=== PATIENT | male | born 1945 | race Hispanic/Latino ===

== ENCOUNTER 2019-01-11 14:21 | Observation (INO) | payer MEDICARE ==
[~2019-01-11] VITALS: Ht 185.4 cm; Wt 110.7 kg
[2019-01-11] MEDS ORDERED: PANTOPRAZOLE 40 MG 10ML VIAL IV ONE (14:39)
[2019-01-11] MEDS ORDERED: NITROGLYCERIN 2% OINT 1 GM PKT TOP ONE (14:45)
[2019-01-11] MEDS ORDERED: ASPIRIN 81 MG CHEW TAB PO ONE (14:45)
[2019-01-11 15:08] LABS: BASOPHILS % 0.3 % (0.0-1.0); EOSINOPHILS % 0.4 % (0.0-6.0); HEMATOCRIT 45.1 % (38.2-49.6); HEMOGLOBIN 14.7 g/dL (14.0-18.0); LYMPHOCYTES # (AUTO) 1.6 (1.0-3.2); LYMPHOCYTES % 20.5 % (18.0-39.1); MEAN CORPUSCULAR HEMOGLOBIN 26.9 pg (28-32); MEAN CORPUSCULAR HGB CONC 32.6 g/dL (31-35); MEAN CORPUSCULAR VOLUME 82.4 fL (81-99); MONOCYTES # (AUTO) 0.7 (0.2-0.8); MONOCYTES % 8.6 % (4.4-11.3); NEUTROPHILS # (AUTO) 5.5 (2.1-6.9); NEUTROPHILS % 69.9 % (38.7-80.0); PLATELET COUNT 221 x10e3/uL (140-360); RED BLOOD COUNT 5.47 x10e6/uL (4.3-5.7); RED CELL DISTRIBUTION WIDTH 14.9 % (11.7-14.4)
[2019-01-11 15:13] LABS: INR 0.92; PARTIAL THROMBOPLASTIN TIME 26.7 seconds (23.8-35.5); PROTHROMBIN TIME 12.8 seconds (11.9-14.5)
[2019-01-11 15:14] LABS: CLARITY,URINE CLEAR (CLEAR); COLOR,URINE YELLOW (YELLOW); KETONES,URINE NEGATIVE (NEGATIVE); LEUKOCYTE ESTERASE ,URINE NEGATIVE (NEGATIVE); NITRITE,URINE NEGATIVE (NEGATIVE); PROTEIN,URINE DIPSTICK NEGATIVE (NEGATIVE)
[2019-01-11 15:15] LABS: BILIRUBIN,URINE NEGATIVE (NEGATIVE); URINE UROBILINOGEN 0.2 mg/dL (0.2 - 1)
[2019-01-11 15:20] LABS: BACTERIA,URINE FEW /HPF; RBC,URINE 0-5 /HPF (0-5)
[2019-01-11 15:21] LABS: ALBUMIN 3.8 g/dL (3.5-5.0); ANION GAP 10.7 mmol/L (8-16); CALCIUM 9.5 mg/dL (8.4-10.2); CREATININE, SERUM 1.22 mg/dL (0.72-1.25); MAGNESIUM 2.4 MG/DL (1.3-2.1); POTASSIUM 3.7 mmol/L (3.5-5.1)
[2019-01-11 15:40] LABS: CREATINE KINASE MB 1.4 ng/mL (0-5.0); THYROID STIMULATING HORMONE 1.448 uIU/mL (0.350-4.940)
--- NOTE | 2019-01-11 16:02 | Diagnostic Imaging Report ---
EXAMINATION: CHEST SINGLE (PORTABLE) INDICATION: Chest pain ^CP COMPARISON: None FINDINGS: TUBES and LINES: None. LUNGS: Lungs are well inflated. Lungs are clear. There is no evidence of pneumonia or pulmonary edema. PLEURA: No pleural effusion or pneumothorax. HEART AND MEDIASTINUM: Tortuous thoracic aorta BONES AND SOFT TISSUES: No acute osseous lesion. Soft tissues are unremarkable. UPPER ABDOMEN: No free air under the diaphragm. IMPRESSION: Tortuous thoracic aorta Signed by: Dr. Tavon Chandler M.D. on 01/11/2019 3:58 PM
[2019-01-11] MEDS ORDERED: SODIUM CHLORIDE 0.9% 1000ML 1,000 ML IV STA (16:24)
[2019-01-11] MEDS ORDERED: MORPHINE SULFATE INJ 4 MG/ML INJ 1ML IV ONE (16:45)
[2019-01-11] MEDS ORDERED: ONDANSETRON HCL INJ 2MG/ML 2ML 2 MG/ML VIAL IV ONE (16:45)
[2019-01-11] MEDS ORDERED: SODIUM CHLORIDE 0.9% 1000ML 1,000 ML ONE (16:46)
[2019-01-11] MEDS ORDERED: MORPHINE SULFATE 2 MG/ML SYR 1ML IV PRN (17:00)
[2019-01-11] MEDS ORDERED: ONDANSETRON HCL INJ 2MG/ML 2ML 2 MG/ML VIAL IV PRN (17:00)
[2019-01-11] MEDS ORDERED: MORPHINE SULFATE INJ 4 MG/ML INJ 1ML IV PRN (17:15)
--- NOTE | 2019-01-11 17:20 | Diagnostic Imaging Report ---
EXAM: CT Chest WITH contrast (PE Protocol) INDICATION: Chest pain. COMPARISON: Chest radiograph 01/11/2019 TECHNIQUE: Chest was scanned utilizing a multidetector helical scanner from the lung apex through the level of the diaphragm after administration of IV contrast. Thin section reconstructions were obtained with special concentration on the pulmonary arteries. Coronal and sagittal reformations were obtained. Pulmonary embolism protocol was performed. IV CONTRAST: 100 mL of Isovue-370 COMPLICATIONS: None RADIATION DOSE: Total DLP: 560.08 mGy*cm Estimated effective dose: (DLP x 0.014 x size factor) mSv CTDIvol has been reviewed. It is below the limits set by the Radiation Protocol Committee (RPC). Dose modulation, iterative reconstruction, and/or weight based adjustment of the mA/kV was utilized to reduce the radiation dose to as low as reasonably achievable. FINDINGS: LINES/ TUBES: None. LUNGS AND AIRWAYS: No filling defect is identified within the pulmonary arteries to the segmental level. The lungs are unremarkable. Airways are normal. PLEURA: The pleural spaces are clear. HEART AND MEDIASTINUM: The thyroid gland is normal. No mediastinal, hilar or axillary lymphadenopathy. The heart is normal in size. There is no pericardial effusion. . Main pulmonary artery measures 2.9 cm in diameter and the ascending aorta measures 3.5 cm. UPPER ABDOMEN: Unremarkable BONES: The visualized bony thorax is within normal limits. SOFT TISSUES: Unremarkable. IMPRESSION: No pulmonary emboli. No acute cardiopulmonary abnormality. Signed by: Dr. Tavon Chandler M.D. on 01/11/2019 5:17 PM
--- OUTSIDE RECORDS SUMMARY | 2019-01-11 17:30 | XMS REPORT ---
Author Author [facility] Address Unknown Phone Unavailable Care Team Providers Care Chip Person Name Role Phone Michela STOCKTON Unavailable Unavailable Problems This patient has no known problems. Allergies, Adverse Reactions, Alerts This patient has no known allergies or adverse reactions. Medications This patient has no known medications. Results Test Description Test Time Test Comments Text Results Atomic Results Result Comments CT CHEST W 2019-01-11 17:14:00 [facility] [address] [place] [id number] Patient Name: NATASHA GILLIAM MR #: [id number] : 1945 Age/Sex: 73/M Req #: [id number] Adm Physician: Ordered by: BENIGNO STOCKTON MD Report #: [id number] Location: ER Room/Bed: Procedure: [id number] CT/CT CHEST W Exam Date: Exam Time: REPORT STATUS: Signed EXAM: CT Chest WITH contrast (PE Protocol) INDICATION: Chest pain. COMPARISON: Chest radiograph 01/11/2019 TECHNIQUE: Chest was scanned utilizing a multidetector helical scanner from the lung apex through the level of the diaphragm after administration of IV contrast. Thin section reconstructions were obtained with special concentration on the pulmonary arteries. Coronal and sagittal reformations were obtained. Pulmonary embolism protocol was performed. IV CONTRAST: 100 mL of Isovue-370 COMPLICATIONS: None RADIATION DOSE: Total DLP: 560.08 mGy*cm Estimated effective dose: (DLP x 0.014 x size factor) mSv CTDIvol has been reviewed. It is below the limits set by the Radiation Protocol Committee (RPC). Dose modulation, iterative reconstruction, and/or weight based adjustment of the mA/kV was utilized to reduce the radiation dose to as low as reasonably achievable. FINDINGS: LINES/ TUBES: None. LUNGS AND AIRWAYS: No filling defect is identified within the pulmonary arteries to the segmental level. The lungs are unremarkable. Airways are normal. PLEURA: The pleural spaces are clear. HEART AND MEDIASTINUM: The thyroid gland is normal. No mediastinal, hilar or axillary lymphadenopathy. The heart is normal in size. There is no pericardial effusion. . Main pulmonary artery measures 2.9 cm in diameter and the ascending aorta measures 3.5 cm. UPPER ABDOMEN: Unremarkable BONES: The visualized bony thorax is within normal limits. SOFT TISSUES: Unremarkable. IMPRESSION: No pulmonary emboli. No acute cardiopulmonary abnormality. Signed by: Dr. Tavon Chandler M.D. on 01/11/2019 5:17 PM Dictated By: TAVON CHANDLER MD, MD 16 Transcribed By: ABIMBOLA on 01/11/191716 COPY TO: BENIGNO STOCKTON MD CHEST SINGLE (PORTABLE) 2019-01-11 15:58:00 [place] [address] Patient Name: NATASHA GILLIAM MR #: [id number] : 1945 Age/Sex: 73/M Req #: [id number] Adm Physician: Ordered by: BENIGNO STOCKTON MD Report #: [id number] Location: ER Room/Bed: Procedure: [id number] DX/CHEST SINGLE (PORTABLE) Exam Date: Exam Time: REPORT STATUS: Signed EXAMINATION: CHEST SINGLE (PORTABLE) INDICATION: Chest pain CP COMPARISON: None FINDINGS: TUBES and LINES: None. LUNGS: Lungs are well inflated. Lungs are clear. There is no evidence of pneumonia or pulmonary edema. PLEURA: No pleural effusion or pneumothorax. HEART AND MEDIASTINUM: Tortuous thoracic aorta BONES AND SOFT TISSUES: No acute osseous lesion. Soft tissues are unremarkable. UPPER ABDOMEN: No free air under the diaphragm. IMPRESSION: Tortuous thoracic aorta Signed by: Dr. Tavon Chandler M.D. on 01/11/2019 3:58 PM Dictated By: TAVON CHANDLER MD, MD [id number] Transcribed By: ABIMBOLA on 01/11/19 7762 COPY TO: BENIGNO STOCKTON MD
[2019-01-11] MEDS: NITROGLYCERIN 2% OINT 1 GM PKT TOP SCH (18:00)
[2019-01-11 18:35] VITALS: BP 187/98
--- NOTE | 2019-01-11 19:10 | NUR ---
RECEIVED REPORT ON PATIENT, RECEIVED PATIENT AAOX3 RESTING IN BED WITH FAMILY AT SIDE. REPORTS CHEST PAIN 3/10, AND RELIEF OF SOB. INITIAL ASSESSMENT, ADMISSION HX COMPLETE. BED LOCKED AND IN LOWEST POSITION, CALL LIGHT WITHIN EASY REACH. WILL CONTINUE TO MONITOR THE PATIENT CLOSELY.
[2019-01-11 20:00] VITALS: BP 160/95
[2019-01-11] MEDS ORDERED: NEXIUM20 MG PO (20:16)
[2019-01-11] MEDS ORDERED: ASPIR 8181 MG PO (20:16)
[2019-01-11] MEDS ORDERED: LISINOPRIL10 MG PO (20:16)
[2019-01-11 20:25] VITALS: BP 160/95
[2019-01-11] MEDS: FAMOTIDINE 20 MG/2 ML VIAL IV SCH (21:12)
[2019-01-11] MEDS: METOPROLOL TARTRATE 25 MG TAB PO SCH (21:12)
[2019-01-11] MEDS ORDERED: SODIUM CHLORIDE 0.9% 50ML 50 ML ONE (22:45)
[2019-01-11] MEDS ORDERED: IOPAMIDOL 370 MG/ML 200 ML INFUS..BTL INJ ONE (22:45)
[2019-01-12 00:14] LABS: CREATINE KINASE MB 1.5 ng/mL (0-5.0)
[2019-01-12 00:16] VITALS: BP 152/103
[2019-01-12] MEDS: NITROGLYCERIN 2% OINT 1 GM PKT TOP SCH ×3 (00:16→12:00)
[2019-01-12] MEDS ORDERED: PANTOPRAZOLE SOD 40 MG TABEC PO PRN ×2 (04:30→15:45)
[2019-01-12] MEDS: METOPROLOL TARTRATE 25 MG TAB PO SCH (05:00)
[2019-01-12 05:05] VITALS: BP 121/78
[2019-01-12] MEDS ORDERED: ACETAMINOPHEN 325 MG TAB PO PRN (05:30)
[2019-01-12 05:37] LABS: BASOPHILS % 0.3 % (0.0-1.0); EOSINOPHILS # (AUTO) 0.1 (0.0-0.4); EOSINOPHILS % 1.5 % (0.0-6.0); HEMATOCRIT 42.3 % (38.2-49.6); HEMOGLOBIN 13.4 g/dL (14.0-18.0); LYMPHOCYTES % 26.9 % (18.0-39.1); MEAN CORPUSCULAR HEMOGLOBIN 26.3 pg (28-32); MEAN CORPUSCULAR HGB CONC 31.7 g/dL (31-35); MEAN CORPUSCULAR VOLUME 82.9 fL (81-99); MONOCYTES # (AUTO) 0.7 (0.2-0.8); MONOCYTES % 9.5 % (4.4-11.3); NEUTROPHILS # (AUTO) 4.5 (2.1-6.9); NEUTROPHILS % 61.5 % (38.7-80.0); PLATELET COUNT 186 x10e3/uL (140-360); RED CELL DISTRIBUTION WIDTH 14.9 % (11.7-14.4)
[2019-01-12] MEDS: FAMOTIDINE 20 MG/2 ML VIAL IV SCH ×2 (05:41→17:35)
--- NOTE | 2019-01-12 05:43 | NUR ---
DR SYKES ROUNDED ON PATIENT. NEW ORDERS RECEIVED AND IMPLEMENTED. PATIENT DENIES CHEST PAIN. PLAN FOR DR. HANSEN TO SEE PATIENT, AND ECHO TO BE PERFORMED.
[2019-01-12 06:05] LABS: ALANINE AMINOTRANSFERASE 18 IU/L (0-55); ALBUMIN 3.3 g/dL (3.5-5.0); ALKALINE PHOSPHATASE 53 IU/L (40-150); ANION GAP 10.1 mmol/L (8-16); BLOOD UREA NITROGEN 15 mg/dL (7-26); BUN/CREATININE RATIO 15 (6-25); CARBON DIOXIDE 25 mmol/L (22-29); CHLORIDE 107 mmol/L (98-107); CHOL/HDL RATIO 5.1 (3.9-4.7); CHOLESTEROL 174 MD/DL (0-199); CREATININE, SERUM 1.02 mg/dL (0.72-1.25); EST GLOMERULAR FILTRATION RATE > 60 ML/MIN (60-); GLUCOSE 91 mg/dL (74-118); HDL CHOLESTEROL 34 MG/DL (40-60); LDL CHOLESTEROL 113 MG/DL (60-130); POTASSIUM 4.1 mmol/L (3.5-5.1); SODIUM 138 mmol/L (136-145); TRIGLYCERIDES 134 MG/DL (0-149)
[2019-01-12 06:37] LABS: CREATINE KINASE MB 1.5 ng/mL (0-5.0)
[2019-01-12 07:16] VITALS: BP 132/80
--- NOTE | 2019-01-12 07:32 | NUR ---
Received patient in report this morning. Patient is awake in bed. No S&S of distress noted.
[2019-01-12] MEDS ORDERED: ASPIRIN 81 MG ENTERIC COATED PO SCH (09:00)
[2019-01-12] MEDS ORDERED: LISINOPRIL 10 MG TAB PO SCH (09:00)
[2019-01-12 10:22] VITALS: BP 132/80
--- NOTE | 2019-01-12 10:26 | NUR ---
Patient is awake and supine in bed. at bedside. No chest pain reported. No headache. Patient states "I feel 100%". Lung sounds clear. Bowel sounds active. Skin intact. L AC IV asymptomatic, intact, and patent. No edema noted. No S&S of distress noted. Will continue to monitor. Bed locked in lowest position, call light in reach.
[2019-01-12 12:09] VITALS: BP 135/82
[2019-01-12 13:22] LABS: CREATINE KINASE MB 1.5 ng/mL (0-5.0)
[2019-01-12 16:41] VITALS: BP 126/81
--- NOTE | 2019-01-12 17:15 | NUR ---
Per Dr. Lujan patient can be discharged from cardiology stand point. Dr. Perry paged to notify.
--- NOTE | 2019-01-12 18:40 | NUR ---
L AC 20g IV removed. Catheter tip intact. Pressure dressing applied.
--- NOTE | 2019-01-12 18:49 | NUR ---
Patient discharged at this time. Ambulated with staff assistance to car. Steady gait noted. Discharge instructions given. Continue home meds. Follow up with PCP. Go to ER if chest pain occurs again. Given education about chest pain, noncardiac. Patient verbalized understanding.
--- NOTE | 2019-01-12 23:38 | Consultation ---
DATE OF CONSULTATION: Cardiology consultation. HISTORY OF PRESENT ILLNESS: This is a 73-year-old man with history of hypertension, gastroesophageal reflux disease, who presented to the emergency department with chest pain, shortness of breath, and palpitations. Symptoms started a few days prior to arrival, symptoms were mild in intensity. No exacerbating or relieving factors. No exertional chest pain or typical angina. Upon arrival here, he was noted to be hypertensive with blood pressure readings in the systolic 160s to 180s at home. Upon arrival here, he ruled out for acute OK with three sets of negative cardiac enzymes and a 12-lead electrocardiogram showing nonspecific ST-wave abnormalities. REVIEW OF SYSTEMS: A 12-point review of system was conducted, is negative otherwise as stated above in the HPI. PAST MEDICAL HISTORY: As stated above in the HPI. PAST SURGICAL HISTORY: None recent. PAST FAMILY HISTORY: No premature coronary artery disease and cardiac . SOCIAL HISTORY: No illicit drugs, alcohol use, or tobacco use. MEDICATIONS: See medication reconciliation form. ALLERGIES: IBUPROFEN. PHYSICAL EXAMINATION: VITAL SIGNS: Temperature is 98.6, heart rate 77, respirations are 18, blood pressure is 128/98, ox saturation 98% on room air. GENERALLY: Well appearing, well built, no apparent distress. Alert and oriented x3. HEENT: Head is normocephalic, atraumatic. Eyes, the extraocular muscles are intact. Conjunctivae are clear. NECK: No JVD. No bruits. CARDIOVASCULAR: Regular rate and rhythm. LUNGS: Clear to auscultation bilaterally. No wheezing or rales. ABDOMEN: Soft, nontender, nondistended. EXTREMITIES: No clubbing, cyanosis, or edema. VASCULAR: 2+ pulses. SKIN: Warm, dry, and intact. NEUROLOGIC: No focal deficits noted. LABORATORY DATA: Reviewed. Troponins negative x3. A 12-lead electrocardiogram showed normal sinus rhythm. Nonspecific ST-T wave abnormalities. CT of the chest showed no acute cardiopulmonary abnormality. 2D echocardiogram showed normal left ventricular systolic function. IMPRESSION: 1. Precordial pain. 2. Hypertension. 3. Gastroesophageal reflux disease. RECOMMENDATIONS: The patient ruled out for acute myocardial infarction. Current workup is within normal limits. The patient may be discharged from a cardiovascular standpoint with outpatient stress testing. DO FROILAN Duke/VJL /[id number]
--- NOTE | 2019-01-14 05:43 | Discharge Summary ---
DISCHARGE DIAGNOSIS: Chest pain, ruled out myocardial infarction. HISTORY OF PRESENT ILLNESS AND HOSPITAL COURSE: See hospital chart for full details. The patient is a gentleman, who presents to the emergency room with atypical chest pain and resolved in the emergency room, it did not reoccur, who did rule out by cardiac enzymes and EKGs. He was seen by Dr. Lujan of Cardiology, who felt like the patient was stable for discharge, which the patient was happy with and follow up in 1-2 weeks with an outpatient stress test. CT scan of the chest showed no evidence of pulmonary embolus and echo was within normal limits. The patient was discharged home and told to continue with his medication and follow up with PCP in 1-2 weeks as well as Dr. Lujan in 1-2 weeks. Please see hospital chart for full details. MD NAILA Gomez/MANDY /[id number]
== END 2019-01-12 18:50 | disposition home or self-care (01) ==
LOC: ER 14:21 → ERHOLD 16:49 → IMCU 18:08
PROVIDERS: ADMIT Internal Medicine; ATTEND Internal Medicine
DX: R07.89 Other chest pain (principal); I10 Essential (primary) hypertension; K21.9 Gastro-esophageal reflux disease without esophagitis; R51 Headache
CPT/HCPCS: 36415 ×2; 71045; 71260; 80053 ×2; 80061; 81001; 82550 ×2; 82553 ×2; 83735; 83880; 84443; 84484 ×2; 85025 ×2; 85379; 85610; 85730; 87086; 93005; 93306; 99284; C9113; G0378 ×2; J2270; J7030; Q9967

== ENCOUNTER 2019-06-29 09:50 | Observation (INO) | payer MEDICARE ==
[~2019-06-29] VITALS: Ht 185.4 cm; Wt 112.5 kg
[~2019-06-29 09:50] MED LIST: ASPIR 8181 MG PO; LISINOPRIL10 MG PO; NEXIUM20 MG PO
[2019-06-29] MEDS ORDERED: PANTOPRAZOLE 40 MG 10ML VIAL IV STA (09:57)
[2019-06-29] MEDS ORDERED: ASPIRIN 81 MG CHEW TAB PO ONE (10:00)
[2019-06-29] MEDS ORDERED: ASPIRIN 81 MG ENTERIC COATED PO ONE (10:13)
[2019-06-29 10:22] LABS: BASOPHILS % 0.3 % (0.0-1.0); EOSINOPHILS # (AUTO) 0.1 (0.0-0.4); EOSINOPHILS % 0.8 % (0.0-6.0); HEMATOCRIT 45.5 % (38.2-49.6); HEMOGLOBIN 15.1 g/dL (14.0-18.0); LYMPHOCYTES # (AUTO) 1.7 (1.0-3.2); LYMPHOCYTES % 23.7 % (18.0-39.1); MEAN CORPUSCULAR HEMOGLOBIN 26.8 pg (28-32); MEAN CORPUSCULAR HGB CONC 33.2 g/dL (31-35); MEAN CORPUSCULAR VOLUME 80.7 fL (81-99); MONOCYTES # (AUTO) 0.6 (0.2-0.8); MONOCYTES % 8.4 % (4.4-11.3); NEUTROPHILS # (AUTO) 4.8 (2.1-6.9); NEUTROPHILS % 66.5 % (38.7-80.0); PLATELET COUNT 218 x10e3/uL (140-360); RED BLOOD COUNT 5.64 x10e6/uL (4.3-5.7); RED CELL DISTRIBUTION WIDTH 14.8 % (11.7-14.4)
[2019-06-29] MEDS ORDERED: NITROGLYCERIN 2% OINT 1 GM PKT TOP ONE (10:30)
[2019-06-29 10:38] LABS: INR 0.91; PARTIAL THROMBOPLASTIN TIME 27.4 seconds (23.8-35.5); PROTHROMBIN TIME 12.7 seconds (11.9-14.5)
[2019-06-29 10:47] LABS: ALANINE AMINOTRANSFERASE 25 IU/L (0-55); ALBUMIN/GLOBULIN RATIO 1.1 (0.8-2.0); ALKALINE PHOSPHATASE 64 IU/L (40-150); ANION GAP 11.8 mmol/L (8-16); BLOOD UREA NITROGEN 16 mg/dL (7-26); BUN/CREATININE RATIO 15 (6-25); CARBON DIOXIDE 25 mmol/L (22-29); CHLORIDE 104 mmol/L (98-107); CREATINE KINASE 73 IU/L (30-200); EST GLOMERULAR FILTRATION RATE > 60 ML/MIN (60-); GLUCOSE 97 mg/dL (74-118); MAGNESIUM 2.2 MG/DL (1.3-2.1); POTASSIUM 3.8 mmol/L (3.5-5.1); SODIUM 137 mmol/L (136-145)
[2019-06-29] MEDS ORDERED: ONDANSETRON HCL INJ 2MG/ML 2ML 2 MG/ML VIAL IV PRN (11:00)
[2019-06-29] MEDS ORDERED: MORPHINE SULFATE 2 MG/ML SYR 1ML IV PRN (11:00)
[2019-06-29] MEDS ORDERED: FAMOTIDINE 20 MG/2 ML VIAL IV SCH ×2 (11:00→12:00)
[2019-06-29 11:03] LABS: BILIRUBIN,URINE NEGATIVE (NEGATIVE); CLARITY,URINE HAZY (CLEAR); COLOR,URINE YELLOW (YELLOW); KETONES,URINE NEGATIVE (NEGATIVE); LEUKOCYTE ESTERASE ,URINE NEGATIVE (NEGATIVE); NITRITE,URINE NEGATIVE (NEGATIVE); PROTEIN,URINE DIPSTICK NEGATIVE (NEGATIVE); URINE UROBILINOGEN 0.2 mg/dL (0.2 - 1)
[2019-06-29 11:07] LABS: BACTERIA,URINE FEW /HPF; EPITHELIAL CELLS,URINE FEW /LPF; WBC,URINE (MAN) 0-5 /HPF (0-5)
--- NOTE | 2019-06-29 11:18 | NUR ---
DR. VANCE IN TO SEE THE PT. AND DISCUSS POSSIBLE PROCEDURE TODAY; TREADMILL STRESS TEST.
--- NOTE | 2019-06-29 11:43 | NUR ---
REPORT CALLED TO DORIS VALDES FOR THIS PT. TO GO TO RM 175; ROOM NOT CLEAN
[2019-06-29] MEDS: NITROGLYCERIN 2% OINT 1 GM PKT TOP SCH ×3 (11:56→20:41)
[2019-06-29] MEDS ORDERED: ENOXAPARIN SODIUM INJ 100 MG/ML SYR SC ONE (12:00)
--- NOTE | 2019-06-29 12:03 | Diagnostic Imaging Report ---
Chest, portable AP view History: Chest pain, shortness of breath Comparison: 01/11/2019 IMPRESSION: The heart is within normal limits of size. The aorta has a tortuous and ectatic appearance. There is no focal consolidation, sizable pleural effusion, or pneumothorax. No acute osseous abnormality. Overall there is been no significant interval change since 01/11/2019. Signed by: Jose G Saldivar MD on 06/29/2019 12:00 PM
--- NOTE | 2019-06-29 12:16 | NUR ---
CALLLED KEISHARN TO GIVE UPDATE RE TELE #24/POSSIBLE STRESS TEST TODAY.
--- NOTE | 2019-06-29 12:37 | NUR ---
H&P cc; cp HPI: 73yoM, PCP , developed left chest pain and SOB. No dizziness. PMH: HTN, GERD PSHx: left elbow; heel spur, vasectomy Allergies; see emr FH/SH; ; no etoh/cigs meds; see MAR ROS: no f/c/s/N/V/D/BARRAZA/CP/sob v/s; revd PE: tired appearing anicteric ns1s2 mod bs soft nt nd no e/t a&ox3; taylor skin dry n. affect labs/meds revd A/P: 73yoM Atypical CP- BB/statin/asa HTN- add BB GERD- start pepcid Obesity- check lipids/hba1c BMI 32.2-as above Prop: lovenox;pepcid dispo; stress test. Sandra Merchant MD, PhD.
[2019-06-29] MEDS ORDERED: PANTOPRAZOLE SOD 40 MG TABEC PO PRN ×2 (12:45→13:00)
[2019-06-29 13:04] VITALS: BP 148/96
[2019-06-29 13:09] LABS: CHOL/HDL RATIO 5.8 (3.9-4.7)
[2019-06-29 13:12] VITALS: BP 148/96
[2019-06-29] MEDS ORDERED: REGADENOSON 0.4 MG/5 ML SYR IV ONE (14:30)
[2019-06-29 16:28] VITALS: BP 153/87
[2019-06-29] MEDS ORDERED: ENOXAPARIN SOD INJ 40 MG/0.4 ML SYR SC SCH (17:00)
[2019-06-29] MEDS: FAMOTIDINE 20 MG TAB PO SCH (17:31)
[2019-06-29 17:39] VITALS: BP 168/103
[2019-06-29 19:23] VITALS: BP 168/103
[2019-06-29 19:27] LABS: CREATINE KINASE MB 1.3 ng/mL (0-5.0)
[2019-06-29 20:00] VITALS: BP 130/79
[2019-06-29] MEDS: METOPROLOL TARTRATE 25 MG TAB PO SCH (20:40)
[2019-06-29] MEDS ORDERED: ATORVASTATIN 40 MG TAB PO SCH (21:00)
[2019-06-29] MEDS ORDERED: ATORVASTATIN 20 MG TAB PO SCH (21:00)
[2019-06-29] MEDS ORDERED: PRAVASTATIN 20 MG TAB PO SCH (21:00)
--- NOTE | 2019-06-29 23:16 | Operative Report ---
DATE OF PROCEDURE: 06/29/2019 SURGEON: Rodolfo Alvarez MD LEXISCAN NUCLEAR STRESS TEST ACCESSION NUMBER: [id number]. The patient was stressed using 1 minute intravenous infusion of Lexiscan. Rest and stress Myoview imaging was obtained. Resting heart rate 67. Blood pressure 147/91. No EKG changes. No chest pain. After Lexiscan infusion, nuclear imaging and rest and stress normal. Normal contractility of the left ventricle. CONCLUSIONS: 1. Normal Lexiscan nuclear stress test without evidence of ischemia or infarction. 2. LV ejection fraction 54%. Rodolfo Alvarez MD KSB/MODL /[id number]
[2019-06-29] MEDS ORDERED: ACETAMINOPHEN 325 MG TAB PO PRN (23:45)
[2019-06-30] VITALS: BP 113/73
[2019-06-30] MEDS: NITROGLYCERIN 2% OINT 1 GM PKT TOP SCH (01:12)
--- NOTE | 2019-06-30 02:12 | Consultation ---
DATE OF CONSULTATION: 06/29/2019 Cardiology Consultation REQUESTING PHYSICIAN: Dr. Mccurdy. REASON FOR CONSULTATION: Chest pain. HISTORY OF PRESENT ILLNESS: This is a 73-year-old male with history of hypertension, who presents with complaints of chest pain. The patient reports he has been having chest pressure for the last few days 6/10 in severity. This is not associated with any shortness of breath, nausea, or diaphoresis. The pain has been constant since onset and is worse in the mornings. He denies any edema, orthopnea, or PND. He was previously evaluated by my colleague, Dr. Lujan, earlier this year and instructed to follow up with a nuclear stress test as an outpatient. However, he did not keep his appointment due to going on vacation. REVIEW OF SYSTEMS: Negative except as per HPI. PAST MEDICAL HISTORY: 1. Hypertension. 2. GERD. PAST SURGICAL HISTORY: 1. Elbow surgery. 2. Heel spur. 3. Vasectomy. ALLERGIES: IBUPROFEN. MEDICATIONS: Please see medication list. SOCIAL HISTORY: Denies tobacco, alcohol, or illicit drugs. FAMILY HISTORY: Pertinent for mother with a permanent pacemaker. PHYSICAL EXAMINATION: VITAL SIGNS: Temperature 98.3 degrees, pulse 59, respiratory rate 13, blood pressure 145/97, and oxygen saturation 96% on room air. GENERAL: Awake, alert, no acute distress. HEENT: Normocephalic, atraumatic. Pupils equal. No scleral icterus. NECK: Supple. No thyromegaly or cervical lymphadenopathy. No carotid bruits. LUNGS: Clear to auscultation bilaterally. No wheezes or crackles. CVS: Normal rate. Regular rhythm. No murmur. Normal S1, S2. ABDOMEN: Soft, nontender. EXTREMITIES: No edema. NEUROLOGIC: Nonfocal exam. LABORATORY DATA: WBC 7.14, hemoglobin 15.1, hematocrit 45.5, platelets 218. Sodium 137, potassium 3.8, chloride 104, CO2 of 25, BUN 16, and creatinine 1.1. Troponin 0.006. Cholesterol 209, triglycerides 169, LDL 139, HDL 36. Chest x-ray, aorta has a tortuous and ectatic appearance. No significant interval change. EKG, normal sinus rhythm, left axis deviation, incomplete right bundle-branch block. Possible anterior infarct, age undetermined. IMPRESSION: 1. Chest pain. 2. Hypertension. RECOMMENDATIONS: Trend cardiac enzymes to rule out myocardial infarction. Given recurrent chest pain, we will proceed with nuclear stress test to evaluate for ischemia. Start the patient on atorvastatin given elevated LDL. Continue current cardiac medications. Otherwise, his blood pressure is adequately controlled for age. Thank you for this consult. We will continue to follow. Mariya Sifuentes MD ABS/MODL /[id number]
[2019-06-30 04:00] VITALS: BP 107/84
[2019-06-30 05:41] LABS: BASOPHILS % 0.4 % (0.0-1.0); EOSINOPHILS # (AUTO) 0.1 (0.0-0.4); EOSINOPHILS % 1.2 % (0.0-6.0); HEMATOCRIT 42.7 % (38.2-49.6); HEMOGLOBIN 13.6 g/dL (14.0-18.0); LYMPHOCYTES % 26.2 % (18.0-39.1); MEAN CORPUSCULAR HEMOGLOBIN 26.6 pg (28-32); MEAN CORPUSCULAR HGB CONC 31.9 g/dL (31-35); MEAN CORPUSCULAR VOLUME 83.4 fL (81-99); MONOCYTES # (AUTO) 0.7 (0.2-0.8); MONOCYTES % 9.9 % (4.4-11.3); NEUTROPHILS # (AUTO) 4.6 (2.1-6.9); PLATELET COUNT 202 x10e3/uL (140-360); RED BLOOD COUNT 5.12 x10e6/uL (4.3-5.7)
[2019-06-30 06:09] LABS: ALBUMIN 3.4 g/dL (3.5-5.0); ANION GAP 9.9 mmol/L (8-16); CALCIUM 9.4 mg/dL (8.4-10.2); CREATININE, SERUM 1.27 mg/dL (0.72-1.25); POTASSIUM 3.9 mmol/L (3.5-5.1)
[2019-06-30 06:10] LABS: ALBUMIN/GLOBULIN RATIO 1.1 (0.8-2.0); CHOL/HDL RATIO 6.5 (3.9-4.7)
[2019-06-30 06:55] LABS: CREATINE KINASE MB 1.3 ng/mL (0-5.0)
[2019-06-30] MEDS ORDERED: Atorvastatin PO (07:33)
[2019-06-30] MEDS ORDERED: LOPRESSOR25 MG PO (07:33)
[2019-06-30] MEDS: FAMOTIDINE 20 MG TAB PO SCH (07:45)
[2019-06-30 08:00] VITALS: BP 149/92
[2019-06-30] MEDS: METOPROLOL TARTRATE 25 MG TAB PO SCH (08:05)
[2019-06-30 08:06] VITALS: BP 149/92
[2019-06-30] MEDS ORDERED: ASPIRIN 81 MG CHEW TAB PO SCH (09:00)
[2019-06-30] MEDS ORDERED: ASPIRIN 81 MG ENTERIC COATED PO SCH (09:00)
[2019-06-30] MEDS ORDERED: LISINOPRIL 10 MG TAB PO SCH (09:00)
--- NOTE | 2019-06-30 13:36 | NUR ---
D/C summary; Principal Dx: Atypical CP- BB/statin/asa Normal LVEF Normal stess test Secondary dx: HTN- add BB GERD- start pepcid Obesity- check lipids/hba1c BMI 32.2-as above Prop: lovenox;pepcid dispo; stress test. Stress test normal; LVEF normal; d/c home stable f/u pcp 1 week and therapist rrt in 2 weeks d/c>35mins. Sandra Merchant MD, PhD.
== END 2019-06-30 09:20 | disposition home or self-care (01) ==
LOC: ER 09:50 → ERHOLD 10:52 → IMCU 12:36
PROVIDERS: ADMIT Internal Medicine; ATTEND Internal Medicine
DX: R07.89 Other chest pain (principal); I10 Essential (primary) hypertension; E78.5 Hyperlipidemia, unspecified; K21.9 Gastro-esophageal reflux disease without esophagitis; E66.9 Obesity, unspecified; Z87.891 Personal history of nicotine dependence; Z82.49 Family history of ischemic heart disease and other diseases of the circulatory system; Z88.6 Allergy status to analgesic agent; Z68.32 Body mass index [BMI] 32.0-32.9, adult
CPT/HCPCS: 36415 ×2; 71045; 78452; 80053 ×2; 80061 ×2; 81001; 82550 ×2; 82553 ×2; 83036; 83735; 83880; 84484 ×2; 85025 ×2; 85610; 85730; 93005; 93017; 99284; A9502; C9113; G0378 ×2; J1650 ×2; J2785

== ENCOUNTER → 2019-10-18 | Outpatient (CLI) | payer MEDICARE ==
[~2019-10-18] MED LIST changes: +Atorvastatin PO; +LOPRESSOR25 MG PO; +METOPROLOL TART25 MG PO; +PANTOPRAZOLE SO40 MG PO; +PRAVASTATIN SOD40 MG PO
[2019-10-18 10:29] LABS: BASOPHILS % 0.4 % (0.0-1.0); EOSINOPHILS # (AUTO) 0.1 (0.0-0.4); EOSINOPHILS % 1.6 % (0.0-6.0); HEMATOCRIT 46.3 % (38.2-49.6); HEMOGLOBIN 14.7 g/dL (14.0-18.0); LYMPHOCYTES # (AUTO) 1.9 (1.0-3.2); LYMPHOCYTES % 27.4 % (18.0-39.1); MEAN CORPUSCULAR HEMOGLOBIN 26.1 pg (28-32); MEAN CORPUSCULAR HGB CONC 31.7 g/dL (31-35); MEAN CORPUSCULAR VOLUME 82.2 fL (81-99); MONOCYTES # (AUTO) 0.7 (0.2-0.8); MONOCYTES % 9.6 % (4.4-11.3); NEUTROPHILS # (AUTO) 4.2 (2.1-6.9); NEUTROPHILS % 60.7 % (38.7-80.0); PLATELET COUNT 227 x10e3/uL (140-360); RED BLOOD COUNT 5.63 x10e6/uL (4.3-5.7); RED CELL DISTRIBUTION WIDTH 15.6 % (11.7-14.4)
== END ==
LOC: RAD 05:00 → EDSTATUS 10-24 08:30
PROVIDERS: ATTEND Internal Medicine Gastroenterology
DX: Z01.818 Encounter for other preprocedural examination (principal); R13.10 Dysphagia, unspecified
CPT/HCPCS: 36415; 85025; 93005

== ENCOUNTER 2020-03-28 07:17 | Emergency (ER) | payer MEDICARE ==
[~2020-03-28] VITALS: Ht 185.4 cm; Wt 110.7 kg
[2020-03-28] MEDS ORDERED: SODIUM CHLORIDE 0.9% 1000ML 1,000 ML IV STA (07:26)
[2020-03-28] MEDS ORDERED: ONDANSETRON HCL INJ 2MG/ML 2ML 2 MG/ML VIAL IV STA (07:26)
[2020-03-28] MEDS ORDERED: MORPHINE SULFATE INJ 4 MG/ML INJ 1ML IV STA (07:26)
[2020-03-28] MEDS ORDERED: PIPER-TAZ 3.375 GM 50 ML IV STA (07:26)
[2020-03-28 07:45] LABS: BASOPHILS % 0.2 % (0.0-1.0); EOSINOPHILS # (AUTO) 0.1 (0.0-0.4); EOSINOPHILS % 1.1 % (0.0-6.0); HEMATOCRIT 44.6 % (38.2-49.6); HEMOGLOBIN 14.5 g/dL (14.0-18.0); LYMPHOCYTES # (AUTO) 1.5 (1.0-3.2); LYMPHOCYTES % 22.6 % (18.0-39.1); MEAN CORPUSCULAR HEMOGLOBIN 26.2 pg (28-32); MEAN CORPUSCULAR HGB CONC 32.5 g/dL (31-35); MEAN CORPUSCULAR VOLUME 80.7 fL (81-99); MONOCYTES # (AUTO) 0.8 (0.2-0.8); MONOCYTES % 12.7 % (4.4-11.3); NEUTROPHILS # (AUTO) 4.1 (2.1-6.9); NEUTROPHILS % 63.1 % (38.7-80.0); PLATELET COUNT 231 x10e3/uL (140-360); RED BLOOD COUNT 5.53 x10e6/uL (4.3-5.7); RED CELL DISTRIBUTION WIDTH 14.7 % (11.7-14.4)
[2020-03-28 07:58] LABS: CLARITY,URINE CLEAR (CLEAR); COLOR,URINE YELLOW (YELLOW)
[2020-03-28 07:59] LABS: BILIRUBIN,URINE NEGATIVE (NEGATIVE); KETONES,URINE NEGATIVE (NEGATIVE); LEUKOCYTE ESTERASE ,URINE NEGATIVE (NEGATIVE); NITRITE,URINE NEGATIVE (NEGATIVE); PROTEIN,URINE DIPSTICK NEGATIVE (NEGATIVE); URINE UROBILINOGEN 0.2 mg/dL (0.2 - 1)
[2020-03-28] MEDS ORDERED: PANTOPRAZOLE 40 MG 10ML VIAL IV ONE (08:00)
[2020-03-28 08:04] LABS: ALANINE AMINOTRANSFERASE 33 IU/L (0-55); ALBUMIN 3.7 g/dL (3.5-5.0); ALBUMIN/GLOBULIN RATIO 1.1 (0.8-2.0); ALKALINE PHOSPHATASE 63 IU/L (40-150); ANION GAP 9.7 mmol/L (8-16); BLOOD UREA NITROGEN 16 mg/dL (7-26); BUN/CREATININE RATIO 14 (6-25); CALCIUM 8.6 mg/dL (8.4-10.2); CARBON DIOXIDE 26 mmol/L (22-29); CHLORIDE 105 mmol/L (98-107); CREATINE KINASE 65 IU/L (30-200); CREATININE, SERUM 1.18 mg/dL (0.72-1.25); EST GLOMERULAR FILTRATION RATE > 60 ML/MIN (60-); GLUCOSE 106 mg/dL (74-118); LIPASE 22 U/L (8-78); POTASSIUM 3.7 mmol/L (3.5-5.1); SODIUM 137 mmol/L (136-145)
--- NOTE | 2020-03-28 08:10 | Emergency Department Note ---
History of Present Illnes History of Present Illness Chief Complaint: Abdominal Complaints History of Present Illness This is a 74 year old male arrives to the ED with diffuse abdominal pain, states pain isn't present for about a week and worsening.. Historian: Patient Arrival Mode: Car It Security Administrator Required: No Onset quality: gradual Duration (how long): week(s) Timing of current episode: constant Progression: worsening Chronicity: new Relieving factors: none Past Medical/Family History Physician Review I have reviewed the patient's past medical and family history. Any updates have been documented here. Past Medical History Recent Fever: No Clinical Suspicion of Infectio: No New/Unexplained Change in Ment: No Past Medical History: Hypertension, GERD, Hyperlipedemia Other Medical History: GERD Other Surgery: left elbow sx, heel spurs Family History Family history of heart diseas: No Other Last Tetanus: UNKNOWN Review of Systems Review of Systems Constitutional: Reports no symptoms EENTM: Reports no symptoms Cardiovascular: Reports no symptoms Respiratory: Reports no symptoms Gastrointestinal: Reports as per HPI, Reports abdominal pain, Reports nausea, Reports vomiting Genitourinary: Reports no symptoms Musculoskeletal: Reports no symptoms Integumentary: Reports no symptoms Neurological: Reports no symptoms Psychological: Reports no symptoms Endocrine: Reports no symptoms Hematological/Lymphatic: Reports no symptoms Physical Exam Related Data Allergies: Coded Allergies: ibuprofen (Verified Allergy, Intermediate, HIVES, 03/28/20) Triage Vital Signs Vital Signs Date Time Temp Pulse Resp B/P (MAP) Pulse Ox O2 Delivery O2 Flow Rate FiO2 03/28/20 07:24 97.4 62 20 175/109 97 Vital signs reviewed: Yes Physical Exam CONSTITUTIONAL Constitutional: Present well-developed, Present well-nourished HENT HENT: Present normocephalic, Present atraumatic, Present oropharynx clear/moist, Present nose normal HENT L/R: Present left ext ear normal, Present right ext ear normal EYES Eyes: Reports PERRL, Reports conjunctivae normal NECK Neck: Present ROM normal PULMONARY Pulmonary: Present effort normal, Present breath sounds normal CARDIOVASCULAR Cardiovascular: Present regular rhythm, Present heart sounds normal, Present capillary refill normal, Present normal rate GASTROINTESTINAL Abdominal: Present soft, Present bowel sounds normal, Present tender GENITOURINARY Genitourinary: Present exam deferred SKIN Skin: Present warm, Present dry MUSCULOSKELETAL Musculoskeletal: Present ROM normal NEUROLOGICAL Neurological: Present alert, Present oriented x 3, Present no gross motor or sensory deficits PSYCHOLOGICAL Psychological: Present mood/affect normal, Present judgement normal Results Laboratory Result Diagram: 03/28/20 0740 Laboratory Laboratory Tests Test 03/28/20 07:40 White Blood Count 6.51 x10e3/uL (4.8-10.8) Red Blood Count 5.53 x10e6/uL (4.3-5.7) Hemoglobin 14.5 g/dL (14.0-18.0) Hematocrit 44.6 % (38.2-49.6) Mean Corpuscular Volume 80.7 fL (81-99) Mean Corpuscular Hemoglobin 26.2 pg (28-32) Mean Corpuscular Hemoglobin Concent 32.5 g/dL (31-35) Red Cell Distribution Width 14.7 % (11.7-14.4) Platelet Count 231 x10e3/uL (140-360) Neutrophils (%) (Auto) 63.1 % (38.7-80.0) Lymphocytes (%) (Auto) 22.6 % (18.0-39.1) Monocytes (%) (Auto) 12.7 % (4.4-11.3) Eosinophils (%) (Auto) 1.1 % (0.0-6.0) Basophils (%) (Auto) 0.2 % (0.0-1.0) Neutrophils # (Auto) 4.1 (2.1-6.9) Lymphocytes # (Auto) 1.5 (1.0-3.2) Monocytes # (Auto) 0.8 (0.2-0.8) Eosinophils # (Auto) 0.1 (0.0-0.4) Basophils # (Auto) 0.0 (0.0-0.1) Absolute Immature Granulocyte (auto 0.02 x10e3/uL (0-0.1) Urine Color Yellow (YELLOW) Urine Clarity Clear (CLEAR) Urine pH 5 (5 - 7) Urine Specific [place] 1.025 (1.010-1.025) Urine Protein Negative (NEGATIVE) Urine Glucose (UA) Negative (NEGATIVE) Urine Ketones Negative (NEGATIVE) Urine Blood Trace (NEGATIVE) Urine Nitrite Negative (NEGATIVE) Urine Bilirubin Negative (NEGATIVE) Urine Urobilinogen 0.2 mg/dL (0.2 - 1) Urine Leukocyte Esterase Negative (NEGATIVE) Lab results reviewed: Yes Imaging Imaging results reviewed: Yes Impressions IMPRESSION: Cholelithiasis without CT evidence of cholecystitis. Diverticulosis without CT evidence of diverticulitis. Assessment & Plan Medical Decision Making MDM 74-year-old well-appearing male arrives the ED with complaints of diffuse abdominal tenderness. Patient admits to eating a lot of fried pork. Patient CT findings consistent with cholelithiasis and no evidence of acute cholecystitis. Patient with no WBC count, patient not tachycardic, patient not febrile. No concerns of acute cholecystitis clinically as well. Patient informed of CT findings and encouraged to healthier diet. Patient expressed understanding. Outpatient GI and general surgery follow-up given. Patient stable for DC home. Assessment & Plan Final Impression: (1) Cholelithiasis Depart Disposition: HOME, SELF-CARE Last Vital Signs Date Time Temp Pulse Resp B/P (MAP) Pulse Ox O2 Delivery O2 Flow Rate FiO2 03/28/20 07:24 97.4 62 20 175/109 97 Home Meds Active Scripts Omeprazole (OMEPRAZOLE) 40 Mg Capsule., 40 MG PO DAILY, #30 Prov:YESENIA ZURITA, 03/28/20 Reported Medications Pantoprazole Sodium* (PROTONIX) 40 Mg Tablet.dr, 40 MG PO PRN, TAB 10/18/19 Pravastatin Sodium (PRAVASTATIN SODIUM) 40 Mg Tablet, 4 MG PO HS 10/18/19 Metoprolol Tartrate (METOPROLOL TARTRATE) 25 Mg Tablet, 25 MG PO BID, TAB 10/18/19 Aspirin (ASPIR 81) 81 Mg Tablet.dr, 1 TAB PO DAILY 01/11/19 Medications in the ED Sodium Chloride 1,000 ml @ 0 mls/hr Q0M STAT IV ; Start 03/28/20 at 07:26; Stop 03/28/20 at 07:27 Pantoprazole Sodium 40 mg ONCE ONCE IV ; Start 03/28/20 at 08:00; Stop 03/28/20 at 08:01 Piperacillin Sod/ Tazobactam Sod 50 ml @ 50 mls/hr ONCE STAT IV ; Start 03/28/20 at 07:26; Stop 03/28/20 at 08:25 Morphine Sulfate 4 mg ONCE STAT IV ; Start 03/28/20 at 07:26; Stop 03/28/20 at 07:27 Ondansetron HCl 4 mg ONCE STAT IV ; Start 03/28/20 at 07:26; Stop 03/28/20 at 07:27 YESENIA ZURIAT DO Mar 28, 2020 08:10
[2020-03-28 08:12] LABS: BACTERIA,URINE MODERATE /HPF; EPITHELIAL CELLS,URINE RARE /LPF; RBC,URINE 0-5 /HPF (0-5); WBC,URINE (MAN) 0-5 /HPF (0-5)
--- NOTE | 2020-03-28 08:57 | Diagnostic Imaging Report ---
EXAMINATION: CHEST SINGLE (PORTABLE) INDICATION: Abdominal pain COMPARISON: Chest radiograph 06/29/2019 FINDINGS: LINES/TUBES:None LUNGS:The lungs are well-inflated. No focal consolidation or pulmonary edema. PLEURA:No pleural effusion or pneumothorax. MEDIASTINUM:The cardiomediastinal silhouette appears normal in size and shape. BONES/SOFT TISSUES:No acute osseous injury. ABDOMEN:No free air under the diaphragm. IMPRESSION: No focal pneumonia or pulmonary edema. Signed by: Luis Gibbs MD on 03/28/2020 8:53 AM
--- NOTE | 2020-03-28 09:16 | Diagnostic Imaging Report ---
EXAM: CT Abdomen and Pelvis WITH intravenous contrast INDICATION: Abdominal pain COMPARISON: Chest CT 01/11/2019 TECHNIQUE: Abdomen and pelvis were scanned utilizing a multidetector helical scanner from the lung base to the pubic symphysis after administration of IV contrast. Coronal and sagittal reformations were obtained. Routine protocol was performed. Scan was performed during portal venous phase. IV CONTRAST: 100mL of Isovue 370 ORAL CONTRAST: Water RADIATION DOSE: Total DLP: 834 mGy*cm Dose modulation, iterative reconstruction, and/or weight based adjustment of the mA/kV was utilized to reduce the radiation dose to as low as reasonably achievable. FINDINGS: LOWER THORAX: Normal. HEPATOBILIARY: 6 mm caudate lobe hypodensity is too small to adequately evaluate. No other focal liver lesions. No biliary ductal dilation. Cholelithiasis without sonographic evidence of cholecystitis. SPLEEN: No splenomegaly. PANCREAS: No focal masses or ductal dilatation. ADRENALS: No adrenal nodules. KIDNEYS/URETERS: No hydronephrosis, stones, or solid mass lesions. PELVIC ORGANS/BLADDER: Unremarkable. PERITONEUM / RETROPERITONEUM: No free air or fluid. LYMPH NODES: No lymphadenopathy. VESSELS: Unremarkable. GI TRACT: Mild diverticulosis. No CT evidence of diverticulitis. No abnormal bowel thickening. No bowel obstruction. Normal appendix. BONES AND SOFT TISSUES: No acute osseous injury. L2 vertebral body hemangioma. IMPRESSION: Cholelithiasis without CT evidence of cholecystitis. Diverticulosis without CT evidence of diverticulitis. Signed by: Luis Gibbs MD on 03/28/2020 9:13 AM
[2020-03-28] MEDS ORDERED: OMEPRAZOLE40 MG PO (09:25)
[2020-03-28] MEDS ORDERED: SODIUM CHLORIDE 0.9% 50ML 50 ML ONE (09:45)
[2020-03-28] MEDS ORDERED: IOPAMIDOL 370 MG/ML 200 ML INFUS..BTL INJ ONE (09:45)
== END 2020-03-28 10:11 | disposition home or self-care (01) ==
LOC: ER 07:17
DX: R10.84 Generalized abdominal pain (principal); K80.20 Calculus of gallbladder without cholecystitis without obstruction; I10 Essential (primary) hypertension; K21.9 Gastro-esophageal reflux disease without esophagitis; E78.5 Hyperlipidemia, unspecified
CPT/HCPCS: 36415; 71045; 74177; 80053; 81001; 82550; 82553; 83690; 83880; 84484; 85025; 99284; C9113; J2543; J7030; Q9967; J2270; J2405